=== PATIENT | male | born 1940 | race Caucasian/White ===

== ENCOUNTER → 2019-11-16 | Outpatient (CLI) | payer OTHER | LOC: M.RAD 09:20 | DX: N64.4 Mastodynia (principal) ==

== ENCOUNTER 2020-02-03 15:11 | Inpatient (IN) | payer OTHER ==
[~2020-02-03] VITALS: Ht 180.3 cm; Wt 74.5 kg
[2020-02-03] VITALS (13 sets, daily range): BP systolic 84–143; BP diastolic 49–111
[2020-02-03 15:37] LABS: HEMATOCRIT 32.2 % (42.0-52.0); HEMOGLOBIN 11.3 gm/dL (14.0-18.0); MCH 31.6 pg (26.0-34.0); MCHC 35.1 g/dL (28.0-37.0); MPV 8.1 fl. (7.2-11.1); NUCLEATED RBCS 0 /100WBC; PLATELET COUNT* 160 thou/uL (150-400); RBC 3.57 mil/uL (4.50-6.00); RDW-CV 15.4 % (10.5-14.5); WBC 8.8 thou/uL (4.0-11.0)
[2020-02-03 15:47] LABS: CREATININE 1.5 mg/dL (0.6-1.3); POTASSIUM 3.6 mmol/L (3.5-5.1)
[2020-02-03 15:48] LABS: APTT 26.3 Seconds (25.0-31.3); INR 1.2; PROTIME 11.9 Seconds (9.20-11.50)
--- NOTE | 2020-02-03 15:50 | NUR ---
1535 PT SEIZED, ER STAFF AND PHYSICIAN AT BEDSIDE, 2MG ATIVAN GIVEN PER PHYSICIAN ORDER
[2020-02-03 16:00] LABS: ALBUMIN 3.3 g/dL (3.4-5.0); CK-MB MASS 2.3 ng/mL (<0.5-3.6); TOTAL BILIRUBIN 0.7 mg/dL (<0.1-1.0); TOTAL PROTEIN 7.5 g/dL (6.4-8.2)
[2020-02-03 16:18] LABS: ABSOLUTE LYMPHOCYTES 1.1 thou/uL (0.8-5.3); ABSOLUTE MONOCYTES 0.6 thou/uL (0.0-1.2); ANISOCYTOSIS 1+; METAMYELOCYTES 1 %; MYELOCYTES 1 %; PLATELET ESTIMATE ADEQUATE; POLYCHROMASIA Occasional
[2020-02-03] MEDS ORDERED: OMEPRAZOLE 20 M20 M1 PO (16:24)
[2020-02-03] MEDS ORDERED: CIPRO500 M1 PO (16:27)
[2020-02-03] MEDS ORDERED: DEXAMETHASONE 44 M1 PO (16:27)
[2020-02-03] MEDS ORDERED: ONDANSETRON ODT8 MG PO (16:28)
[2020-02-03] MEDS ORDERED: CVS SUPER CRAN1 EACH PO (16:30)
[2020-02-03] MEDS ORDERED: ZESTRIL10 MG PO (16:30)
--- NOTE | 2020-02-03 18:47 | NUR ---
RECEIVED PT FROM ED. PT TRANSPORTED FROM CT BY ED RN. PT ALERT TO SELF AND PLACE. PT HAS GARBLED SPEECH. PT DENIES PAIN. VSS. AFEBRILE. SINUS RHYTHM WITH BBB ON PUBLIC ADDRESS SYSTEM MECHANIC. ADVANCE DIRECTIVE PLACED IN CHART. PT VOIDED PER URINAL. 3% NS INFUSED.
--- NOTE | 2020-02-03 19:34 | NUR ---
UPDATE GIVEN TO WON SIERRA.
[2020-02-03 22:06] LABS: CALCIUM 8.9 mg/dL (8.5-10.1); CREATININE 1.5 mg/dL (0.6-1.3); POTASSIUM 3.8 mmol/L (3.5-5.1)
[2020-02-04] VITALS (21 sets, daily range): BP systolic 57–148; BP diastolic 37–104
[2020-02-04 03:30] LABS: CALCIUM 8.6 mg/dL (8.5-10.1); CREATININE 1.3 mg/dL (0.6-1.3); POTASSIUM 3.6 mmol/L (3.5-5.1)
--- NOTE | 2020-02-04 06:59 | NUR ---
ASSESSMENTS CHARTED. PATIENT SODIUM LEVEL RETURNING TO NORMAL LIMITS. PATIENT BECAME MORE ALERT AND ORIENTED THE SHIFT PROGRESSED. ATTEMPTED TO START SECOND IV FOR ICU STATUS BUT COULD NOT GET ONE STARTED. NS INFUSING AT 40 ML/HR. PATIENT REMIANED FREE OF SEIZURES ALL NIGHT.
[2020-02-04 08:59] LABS: CALCIUM 8.5 mg/dL (8.5-10.1); CREATININE 1.3 mg/dL (0.6-1.3); POTASSIUM 3.5 mmol/L (3.5-5.1)
--- NOTE | 2020-02-04 09:39 | NUR ---
PATIENT TO ROOM 226 VIA WHEELCHAIR AT THIS TIME. REPORT GIVEN TO TELE NURSE. IV FLUIDS DISCONTINUED PER MD. CONSULT FOR NEPHROLOGY CALLED. ASSESSMENT CHARTED. VSS.
[2020-02-04 12:19] LABS: CALCIUM 8.4 mg/dL (8.5-10.1); CREATININE 1.2 mg/dL (0.6-1.3); POTASSIUM 3.7 mmol/L (3.5-5.1)
[2020-02-04 16:21] LABS: CALCIUM 8.4 mg/dL (8.5-10.1); CREATININE 1.2 mg/dL (0.6-1.3); POTASSIUM 3.4 mmol/L (3.5-5.1)
--- NOTE | 2020-02-04 17:55 | NUR ---
PT VERY CONFUSED AND FORGETFUL. REQUIRES FREQUENT REDIRECTION. URINATING ON THE FLOOR INSTEAD OF HIS URINAL. DENIES PAIN. MRI AND EEG ORDERED. WILL BE DONE TOMARROW. SLOW TO PROGRESS TOWARDS GOALS.
[2020-02-05] VITALS: BP 113/53
[2020-02-05 04:00] VITALS: BP 126/59
--- NOTE | 2020-02-05 04:33 | NUR ---
ASSUMED CARE OF PT AFTER REPORT AT 1930. PT A&OX1. CONFUSED & IMPULSIVE. TRIED TO PULL OUT IV & MANAGER SPECIALTY-DR ADEN MADE AWARE WITH NEW ORDER. VSS. PHYSICAL ASSESSMENT COMPLETED AND CHARTED. PT ON RA. PT TRACING SR/BBB ON TELE. PT UPSTANDBY. PT DENIES PAIN. PT WITH EPISODES OF INCONTINENT BLADDER. URINE SPECIMEN SENT TO LAB. FALL PRECAUTIONS IN PLACED. MAINTAINED ON SEIZURE PRECAUTION.
[2020-02-05 04:44] LABS: URINE BILIRUBIN NEGATIVE (Negative); URINE BLOOD TRACE (Negative); URINE CLARITY CLEAR; URINE COLOR YELLOW; URINE GLUCOSE-RANDOM NEGATIVE (Negative); URINE KETONES NEGATIVE (Negative); URINE LEUKOCYTES-REFLEX TRACE (Negative); URINE NITRITE-REFLEX NEGATIVE (Negative); URINE PROTEIN NEGATIVE (Negative); URINE UROBILINOGEN 0.2 E.U./dl (0.2-1.0)
[2020-02-05 05:43] LABS: CASTS None Seen /LPF (None Seen); SQUAMOUS 0-3 Few /LPF (0-3)
[2020-02-05 05:44] LABS: BACTERIA-REFLEX 1-9 Few /HPF (None Seen); CRYSTALS None Seen /LPF (None Seen); URINE RBC 3-10 Few /HPF (0-2); URINE WBC-REFLEX 6-15 Few /HPF (0-5)
[2020-02-05 08:30] VITALS: BP 141/72
--- NOTE | 2020-02-05 11:23 | NUR ---
SW spoke with pt dtr to complete initial assessment, introduce self, and SW role. Pt with AMS, pt dtr said that pt was previously independent cognitively and in mobility. Pt dtr said that pt lives at home with but has beginning stages of dementia. Pt dtr hopeful to have pt move in with her and her in March. SW to continue to follow to assist with safe dc planning.
--- NOTE | 2020-02-05 15:32 | EKG ---
[place] [address] ELECTROCARDIOGRAM REPORT Name: TATE[facility]DA [employer] Room: [address] IN M.R.#: [id number] Admission: 02/03/20 Attend Phys: Robin Claros Discharge: Date of : 44 Date of Service: 02/03/20 1519 Report #: [id number] THIS REPORT FOR: //name// [facility] ED Test Date: 2020-02-03 Test Time: 15:19:06 Pat Name: AMANDA YBARRA Department: Room: [facility] Gender: M Train Reservation Clerk: : 1940 Requested By: Nolan Madera Order Number: [id number] MD: Deric Gavin Measurements Intervals [place] Rate: 97 P: 49 OR: 162 QRS: -82 QRSD: 137 T: 76 QT: 398 QTc: 506 Interpretive Statements Sinus tachycardia Multiple premature complexes, vent & supraven RBBB and LAFB Compared to ECG 03/07/2013 07:37:50 Myocardial infarct finding no longer present Electronically Signed On 02-05-2020 15:32:30 CDT by Deric Gavin [email or web address] <ELECTRONICALLY SIGNED> By: Deric Gavin MD, [facility] 02/05/20 1532 1519 1519 Deric Gavin MD, [facility] /EPI
[2020-02-05 16:00] VITALS: BP 128/64
--- NOTE | 2020-02-05 17:31 | NUR ---
ALERT TO SELF. IMPULSIVE AT TIMES. THOUGHT DATE WAS 05/2020. WITH A LITTLE CUEING DID SAY HE WAS IN [facility]. DENIES PAIN. REMAINS ON SEIZURE PRECAUTIONS. UP WITH STAND BY ASSIST. REMAINS ON HEART MONITOR WITH RHYTHM BUNDLE BRANCH BLOCK. CONTINUES ON 1200ML FLUID RESTRICTIONS. VOIDED IN URINAL WITHOUT DIFFICULTY. USES CALL LIGHT WHEN NEEDING ASSIST. FALL PRECAUTIONS IN PLACE. BED ALARM ON.
[2020-02-05 23:55] VITALS: BP 128/69
[2020-02-06 05:10] LABS: ABSOLUTE LYMPHOCYTES 0.7 thou/uL (0.8-5.3); ABSOLUTE MONOCYTES 0.8 thou/uL (0.0-1.2); ABSOLUTE NEUTROPHILS 7.5 thou/uL (1.6-8.1); BASOPHILS 0.4 %; EOSINOPHILS 0.1 %; HEMATOCRIT 28.2 % (42.0-52.0); LYMPHOCYTES 8.2 %; MCH 31.9 pg (26.0-34.0); MCHC 35.3 g/dL (28.0-37.0); MCV 90.5 fL (80.0-100.0); MONOCYTES 8.7 %; MPV 7.8 fl. (7.2-11.1); NUCLEATED RBCS 0 /100WBC; PLATELET COUNT* 190 thou/uL (150-400); POLYS 82.6 %; RBC 3.12 mil/uL (4.50-6.00); RDW-CV 15.9 % (10.5-14.5); WBC 9.1 thou/uL (4.0-11.0)
[2020-02-06 05:12] VITALS: BP 137/70
[2020-02-06 05:27] LABS: ALBUMIN 2.5 g/dL (3.4-5.0); CALCIUM 8.4 mg/dL (8.5-10.1); CREATININE 1.3 mg/dL (0.6-1.3); POTASSIUM 3.6 mmol/L (3.5-5.1); TOTAL BILIRUBIN 0.4 mg/dL (<0.1-1.0); TOTAL PROTEIN 6.3 g/dL (6.4-8.2)
--- NOTE | 2020-02-06 07:11 | NUR ---
Pt oriented to person. Confused. Forgetful. Pt can be impulsive. Can attempt getting out of bed without asking for help. Seizure precautions in place. Fall precautions in place. Pt takes med whole. Pt voids via urinals. Call light within reach. Will continue to monitor.
[2020-02-06 12:36] VITALS: BP 124/58
--- NOTE | 2020-02-06 14:34 | CON ---
[facility] [address] [place] [address] CONSULTATION Name: AMANDA YBARRA Room: [address] IN .R.#: [id number] Admission: 02/03/20 Attend Phys: Leandar Swain Discharge: Date of : 44 Report #: [id number] THIS REPORT FOR: //name// cc: WEI Romero family physician/PCP WEI Romero family physician/PCP ~ THIS REPORT FOR: //name// CC: WEI physician/PCP Robin Claros DATE OF SERVICE: 02/04/2020 REQUESTING PHYSICIAN: Robin Claros DO REASON FOR CONSULTATION: Hyponatremia. HISTORY OF PRESENT ILLNESS: The patient is a 79-year-old gentleman, with medical history significant for metastatic lung cancer, who presents with altered mental status. He then later on developed seizure, was found to be hyponatremic. His serum sodium was 124. He was started in the Emergency Room on 2% saline and normal saline. Serum sodium today is 136, so 2% saline and normal saline was stopped. I was not involved in that decision about that fluids in the Emergency Room. This is my first time I am seeing the patient now. PAST MEDICAL HISTORY: Lung cancer, which is metastatic, history of seizure. He also has history of GERD and hypertension. MEDICATIONS: Prior to admission reviewed. FAMILY HISTORY: Noncontributory. SOCIAL HISTORY: No current tobacco or alcohol abuse. REVIEW OF SYSTEMS: Feels better now. He was asleep, I woke him up and he has no chest pain, no shortness of breath, no nausea, no vomiting, no dysuria. So again pretty comfortable with no complaints. PHYSICAL EXAMINATION: GENERAL: No acute distress. VITAL SIGNS: Blood pressure now 139/70, heart rate is 67, afebrile. HEENT: Pupils round. NECK: Supple. LUNGS: Clear. CARDIOVASCULAR: Regular rate. ABDOMEN: [place] [address] CONSULTATION Name: AMANDA YBARRA Room: [address]#: [id number] Admission: 02/03/20 Attend Phys: Leandra Swain Discharge: Date of : 44 Report #: [id number] LOWER EXTREMITIES: No edema. ASSESSMENT: 1. Hyponatremia. It is difficult to say now what caused that because the patient received both normal saline and 2% saline. 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 I am going to check urine for sodium and for osmolality and follow his serum sodium level. I would put him on 1200 mL fluid restriction, now empirically. <ELECTRONICALLY SIGNED> By: Kai Swain MD 02/06/20 1434 1050 1527Alexandtyree Swain MD /SHYANNE
--- NOTE | 2020-02-06 16:10 | NUR ---
PATIENT RESTING I NBED. UP WITH ASSISTX1 TO BATHROOM. AOX2 AND CONFUSED. NEUROLOGY VISITED TODAY. AWAITING EEG RESULTS. PATINET FREQUENTLY REORIENTED AND IMPUKSIVE AT TIMES. HOURLY ROUNDING COMPLETED FOR PATIENT SAFETY.
[2020-02-06 17:50] VITALS: BP 142/65
[2020-02-06 20:00] VITALS: BP 145/68
[2020-02-07] VITALS (7 sets, daily range): BP systolic 115–122; BP diastolic 45–69
--- NOTE | 2020-02-07 05:51 | NUR ---
ASSESSMENTS COMPLETED AT BEDSIDE, PLEASE REFER TO CHARTING FOR DETAILS. MEDICATIONS ADMINISTERED PER MAR. HOURLY ROUNDING COMPLETED FOR SAFETY. FALL PERCAUTIONS IN PLACE, BED ALARM ON AND CALL LIGHT WITHIN REACH. PT DID WELL WITH USING HIS CALL LIGHT TO GET UP, SHOWING IMPROVMENT WITH GAIT WELL.
[2020-02-07] MEDS ORDERED: KEPPRA 500 MG500 M1 PO (08:55)
[2020-02-07 09:33] LABS: ABSOLUTE LYMPHOCYTES 0.9 thou/uL (0.8-5.3); ABSOLUTE MONOCYTES 0.8 thou/uL (0.0-1.2); ABSOLUTE NEUTROPHILS 7.4 thou/uL (1.6-8.1); BASOPHILS 0.4 %; EOSINOPHILS 0.1 %; HEMATOCRIT 28.4 % (42.0-52.0); LYMPHOCYTES 9.3 %; MCHC 35.2 g/dL (28.0-37.0); MCV 90.9 fL (80.0-100.0); MONOCYTES 9.2 %; MPV 8.2 fl. (7.2-11.1); NUCLEATED RBCS 0 /100WBC; PLATELET COUNT* 211 thou/uL (150-400); RBC 3.12 mil/uL (4.50-6.00); RDW-CV 16.2 % (10.5-14.5); WBC 9.1 thou/uL (4.0-11.0)
[2020-02-07 09:41] LABS: ALBUMIN 2.6 g/dL (3.4-5.0); CALCIUM 8.5 mg/dL (8.5-10.1); CREATININE 1.1 mg/dL (0.6-1.3); POTASSIUM 3.6 mmol/L (3.5-5.1); TOTAL BILIRUBIN 0.3 mg/dL (<0.1-1.0); TOTAL PROTEIN 6.4 g/dL (6.4-8.2)
--- NOTE | 2020-02-07 15:57 | NUR ---
Pt discharged to home today, [facility] Pt's PCP is Dr Ernesto Spivey [phone]. Dtr here and in agreement
--- NOTE | 2020-02-08 17:53 | EEG ---
[address] [address] EEG STUDY REPORT Name: AMANDA YBARRA Room: [address]R#: [id number] Admission: 02/03/20 Attend Phys: Leandra Swain Discharge: 02/07/20 Date of : 44 Report #: [id number] THIS REPORT FOR: //name// CC: WEI physician/PCP Robin Claros DATE OF SERVICE: 02/05/2020 This patient is being evaluated for altered mental status and seizure. EEG was done by placing the electrodes by standard 10-20 system of electrode placement. Both referential and sequential montages were used for recording. The patient's EEG has a lot of artifact and is difficult to interpret. Background activity does go up to about 8-9 Hz and 30 microvolt. Photic stimulation is unremarkable. The patient appeared to be drowsy during part of this EEG and that is associated with bilateral slowing and vertex sharp waves. Throughout the record, no active epileptiform activity was noticed. IMPRESSION: This EEG is difficult to interpret because it is intermixed with a lot of artifact. It is moderately abnormal demonstrated some slowing, but does not appear to be showing any active epileptiform activity. Thank you very much for this referral. <ELECTRONICALLY SIGNED> By: Jeremy Burciaga MD 02/08/20 1753 1625 1719MD ailyn Headley
== END 2020-02-07 13:49 | disposition home health service (06) | DRG 643 ==
LOC: M.ERS 15:11 → M.ICU 16:27 → M.2W 16:27 → M.TBA-ER 16:27 → M.ICU 17:55 → M.2W 02-04 10:05
PROVIDERS: Emergency Medicine Emergency Medical Services; Internal Medicine Nephrology; ADMIT Internal Medicine; ATTEND Internal Medicine
DX: E22.2 Syndrome of inappropriate secretion of antidiuretic hormone (principal); R65.11 Systemic inflammatory response syndrome (SIRS) of non-infectious origin with acute organ dysfunction; G93.41 Metabolic encephalopathy; N39.0 Urinary tract infection, site not specified; N17.9 Acute kidney failure, unspecified; C34.90 Malignant neoplasm of unspecified part of unspecified bronchus or lung; R56.9 Unspecified convulsions; K21.9 Gastro-esophageal reflux disease without esophagitis; F17.210 Nicotine dependence, cigarettes, uncomplicated; I12.9 Hypertensive chronic kidney disease with stage 1 through stage 4 chronic kidney disease, or unspecified chronic kidney disease; J44.9 Chronic obstructive pulmonary disease, unspecified; N18.3 Chronic kidney disease, stage 3 (moderate); Z85.118 Personal history of other malignant neoplasm of bronchus and lung; Z20.828 Contact with and (suspected) exposure to other viral communicable diseases; Z79.899 Other long term (current) drug therapy

== ENCOUNTER 2020-02-26 11:59 | Inpatient (IN) | payer OTHER ==
[~2020-02-26] VITALS: Ht 172.7 cm; Wt 66.2 kg
--- NOTE | ~2020-02-26 | CON ---
[facility] [address] [place] [address] CONSULTATION Name: AMANDA YBARRA Room: [address] IN M.R.#: [id number] Admission: 02/26/20 Attend Phys: Mary Carrasco MD Discharge: Date of : 44 Report #: [id number] THIS REPORT FOR: //name// cc: [facility] physician unknown [facility] physician unknown ~ THIS REPORT FOR: //name// CC: WEI unknown Mary Carrasco [facility] DATE OF SERVICE: 02/27/2020 HISTORY OF PRESENT ILLNESS: This is a 79-year-old male patient who was seen by me for confusion. The daughter provides history. I reviewed his prior records. I have seen him last time, he had a problem with an episode of confusion. Workup was mostly unremarkable including MRI of the brain with and without contrast. It was thought that he may have had a seizure and he was started on Keppra. He had similar episode where he had confusion and some hallucination. He has some UTI. He does have some low oxygen when he came in. He has no side effect from Keppra. He feels back to his baseline. A 14-point review of systems was carried out and his prior records were reviewed. He had some spells. He has a history of lung carcinoma. He has been on Cipro the last time, but presently he is not on Cipro. I got an MRI and MRA done. He had one last time. It does not show any abnormality which can explain his symptoms. His EEG is still pending. REVIEW OF SYSTEMS: Positive for metastatic lung cancer. He had multiple seizures. FAMILY HISTORY: Negative for seizure. SOCIAL HISTORY: He has a history of smoking, but he does not drink alcohol. PHYSICAL EXAMINATION: NEUROLOGIC: His examination indicates he is alert, responsive, and able to follow simple commands. He was in fact able to recognize me. He thinks he is back to baseline. His speech is back to the baseline. His cranial nerve examination 2-12 does not appear to be showing any definite abnormality. Neuromuscular examination is unremarkable. He is able to ambulate without any assistance. VITAL SIGNS: His blood pressure is 153/63, pulse is 53, and temperature is 98.2. IMPRESSION AND PLAN: Pretty difficult to form in this patient. The main differential is between encephalopathy as well as [place] [address] CONSULTATION Name: AMANDA YBARRA Room: [address]#: [id number] Admission: 02/26/20 Attend Phys: Mary Carrasco MD Discharge: Date of : 44 Report #: [id number] await the EEG. His systemic problems need to be addressed, and I will discuss with the family and yourself tomorrow. About 50 minutes of time was spent taking care of this patient today and majority of that time was spent counseling and coordinating. By: 1959 Isabel Burciaga MD /nt
[~2020-02-26 11:59] MED LIST: CIPRO500 M1 PO; CVS SUPER CRAN1 EACH PO; DEXAMETHASONE 44 M1 PO; KEPPRA 500 MG500 M1 PO; OMEPRAZOLE 20 M20 M1 PO; ONDANSETRON ODT8 MG PO; ZESTRIL10 MG PO
[2020-02-26 12:04] VITALS: BP 124/54
[2020-02-26 12:31] LABS: HEMATOCRIT 28.1 % (42.0-52.0); HEMOGLOBIN 9.8 gm/dL (14.0-18.0); MCH 32.7 pg (26.0-34.0); MCHC 34.8 g/dL (28.0-37.0); MCV 93.9 fL (80.0-100.0); NUCLEATED RBCS 0 /100WBC; PLATELET COUNT* 86 thou/uL (150-400); RBC 2.99 mil/uL (4.50-6.00); RDW-CV 17.8 % (10.5-14.5)
[2020-02-26 12:32] LABS: WBC 1.7 thou/uL (4.0-11.0)
[2020-02-26 12:42] LABS: ANION GAP 8 mmol/L (7-16); BUN 17 mg/dL (7-18); CALCIUM 9.1 mg/dL (8.5-10.1); CHLORIDE 98 mmol/L (98-107); CO2 26 mmol/L (21-32); CREATININE 1.3 mg/dL (0.6-1.3); GLUCOSE 136 mg/dL (70-99); POTASSIUM 3.7 mmol/L (3.5-5.1); SODIUM 132 mmol/L (136-145)
[2020-02-26 12:53] LABS: ALBUMIN 3.1 g/dL (3.4-5.0); ALKALINE PHOSPHATASE 412 U/L (46-116); AMMONIA < 10 umol/L (11-32); NT-PRO BRAIN NAT PEPTIDE 512 pg/mL (<300); SGOT 70 U/L (15-37); SGPT 67 U/L (30-65); TOTAL BILIRUBIN 0.5 mg/dL (<0.1-1.0); TOTAL PROTEIN 7.2 g/dL (6.4-8.2)
[2020-02-26 13:02] LABS: BE -2.5 mmol/L (-2 to +3); PCO2 33.3 mmHg (35.0-45.0); PO2 67.9 mmHg (75.0-100.0); pH 7.425 (7.340-7.450)
[2020-02-26 13:08] LABS: ABSOLUTE EOSINOPHILS 0.1 thou/uL (0.0-0.7); ABSOLUTE LYMPHOCYTES 0.3 thou/uL (0.8-5.3); ABSOLUTE MONOCYTES 0.2 thou/uL (0.0-1.2); ABSOLUTE NEUTROPHILS 1.1 thou/uL (1.6-8.1); ANISOCYTOSIS 1+; ATYPICAL LYMPHS 2 %; PLATELET ESTIMATE ADEQUATE; POIKILOCYTOSIS 1+; POLYCHROMASIA 1+
[2020-02-26 13:14] LABS: URINE BILIRUBIN NEGATIVE (Negative); URINE BLOOD NEGATIVE (Negative); URINE CLARITY CLEAR; URINE COLOR YELLOW; URINE GLUCOSE-RANDOM NEGATIVE (Negative); URINE KETONES NEGATIVE (Negative); URINE NITRITE-REFLEX NEGATIVE (Negative); URINE PROTEIN TRACE (Negative); URINE UROBILINOGEN 0.2 E.U./dl (0.2-1.0)
[2020-02-26 13:29] LABS: URINE LEUKOCYTES-REFLEX 2+ (Negative)
[2020-02-26 13:30] LABS: CASTS None Seen /LPF (None Seen); CRYSTALS None Seen /LPF (None Seen); SQUAMOUS 0-3 Few /LPF (0-3); URINE RBC 0-2 Rare /HPF (0-2); URINE WBC-REFLEX 6-15 Few /HPF (0-5)
--- NOTE | 2020-02-26 17:05 | NUR ---
THIS RN STARTED A NEW IV IN PATIENTS ROOM. THIS RN TOLD PT THAT I HAD TO START A NEW IV, AND HE COULD NOT PULL THIS ONE OUT, AND PT AGREED. AFTER SUCCESSFUL INSERTION OF IV, THIS RN REMINDED PT THAT HE COULD NOT PULL THIS IV OUT. PT STATED " I WONT PULL THIS IV OUT, IF I COULD TOUCH YOUR PUSSY." THIS RN INSTRUCTED PT THAT WAS INAPPROPRIATE, AND NOT TO TALK IN THAT WAY. DR. FELIPE NOTIFIED.
--- NOTE | 2020-02-26 18:07 | NUR ---
PT ASKED TO GO TO THE BATHROOM AND WAS GIVEN PRIVACY. DURIN THAT TIME HE REMOVED ALL OF HIS MONITORING EQUIPMENT AND RIPPED OUT HIS IV. HE WAS BLEEDING ON THE FLOOR AND ANGRY THAT WE WERE ATTEMPTING TO PLACE BANDAGES ON HIM.
[2020-02-26 18:09] VITALS: BP 106/73
[2020-02-27 05:00] VITALS: BP 123/60
--- NOTE | 2020-02-27 05:01 | NUR ---
PATIENT HAS REMAINED ORIENTED X 4, FORGETFUL BUT COOPERATIVE WITH CARES AND NO OUTBURSTS THIS SHIFT. UP TO BR WITH CGA. VITAL SIGNS STABLE. CONSULTS PENDING. SITTER HAS BEEN WITH PATIENT TONIGHT. SON CALLED FOR UPDATE AT HS. THIS WAS PROVIDED. CONTINUE TO MONITOR.
[2020-02-27 07:10] LABS: HEMATOCRIT 24.7 % (42.0-52.0); HEMOGLOBIN 8.5 gm/dL (14.0-18.0); MCH 32.4 pg (26.0-34.0); MCHC 34.5 g/dL (28.0-37.0); MCV 93.8 fL (80.0-100.0); MPV 8.4 fl. (7.2-11.1); RBC 2.64 mil/uL (4.50-6.00)
[2020-02-27 07:17] LABS: WBC 1.2 thou/uL (4.0-11.0)
[2020-02-27 07:23] LABS: ALBUMIN 2.8 g/dL (3.4-5.0); CALCIUM 8.1 mg/dL (8.5-10.1); CREATININE 0.9 mg/dL (0.6-1.3); MAGNESIUM 1.7 mg/dL (1.8-2.4); POTASSIUM 3.8 mmol/L (3.5-5.1); TOTAL BILIRUBIN 0.4 mg/dL (<0.1-1.0); TOTAL PROTEIN 6.3 g/dL (6.4-8.2)
[2020-02-27 07:45] VITALS: BP 131/56
--- NOTE | 2020-02-27 09:31 | EKG ---
[place] [address] ELECTROCARDIOGRAM REPORT Name: AMANDA YBARRA Room: [address] IN .R.#: [id number] Admission: 02/26/20 Attend Phys: Mary Carrasco, Discharge: Date of : 44 Date of Service: 02/26/20 1205 Report #: [id number] THIS REPORT FOR: //name// [facility] ED Test Date: 2020-02-26 Test Time: 12:05:37 Pat Name: AMANDA YBARRA Department: Room: [facility] Gender: M Endoscopy Nurse: EMILEE : 1940 Requested By: Joana Hassan Order Number: [id number] Javier MD: John Villeda Measurements Intervals [place] Rate: 75 P: 64 [place]: 190 QRS: -82 QRSD: 147 T: 57 QT: 414 QTc: 463 Interpretive Statements Sinus rhythm RBBB and LAFB Compared to ECG 02/03/2020 15:19:06 Sinus tachycardia no longer present Electronically Signed On 02-27-2020 9:31:09 CDT by John Villeda [email or web address] <ELECTRONICALLY SIGNED> By: John Villeda MD, FACC 02/27/20 0931 1205 1205 John Villeda MD, [facility] /EPI
--- NOTE | 2020-02-27 13:46 | NUR ---
Nutrition: Pt admitted with confusion. Lung cancer with METS, chemo. Seen for nursing risk 2 points. Wt recorded as 146# today. Wts are variable in [employer]. Spoke with RN, she stated pt is eating well and is thin but not emaciated. Unsure of accurate wt today. Regular diet. Albumin 2.8. RN agreed pt may take an Ensure - RD to order. Will follow up on po intake, wt, labs. Consider Mild risk at this time. f/u 03/03/20.
[2020-02-27 15:33] VITALS: BP 153/63
--- NOTE | 2020-02-27 16:15 | NUR ---
PT REMAINED ALERT AND ORIENTED. PT RESTING IN BED. PT DENIES ANY PAIN OR N/V. FALL RISK PRECAUTIONS IN PLACE. HOURLY ROUNDING COMPLETED. WILL CONTINUE TO MONITOR.
--- NOTE | 2020-02-27 16:52 | NUR ---
CM COMPLETED INITIAL ASSESSMENT TO DISCUSS D/C PLAN. PT TO POTENTIAL TRANSFER TO [facility]. PT AND DTR NOTIFIED. CM CONTACT ROM AT CT AND FAXED REQUESTED INFO TO [phone]. ROM REQUESTED PT SIGN TRANSFER FORM INDICATING HE IS AGREEABLE TO TRANSFER, DOESNT NEED DOCTOR SIGNATURE (FOR NOW) PER ROM. PT HAS 0 DME, AND NO HX W/SNF OR HH. PT INDEPENDENT W/ADLS AND DESCRIBES SELF "SEMI-ACTIVE." PT STATED HIS DTR RUNS ERRANDS AND HE HAS NOT DRIVEN SINCE SEIZURE ON 02/02.
[2020-02-27 20:00] VITALS: BP 135/55
[2020-02-28 07:05] VITALS: BP 127/60
[2020-02-28 07:39] LABS: HEMATOCRIT 24.6 % (42.0-52.0); HEMOGLOBIN 8.7 gm/dL (14.0-18.0); MCH 32.8 pg (26.0-34.0); MCHC 35.2 g/dL (28.0-37.0); MCV 93.3 fL (80.0-100.0); MPV 8.8 fl. (7.2-11.1); RBC 2.64 mil/uL (4.50-6.00); RDW-CV 18.3 % (10.5-14.5)
[2020-02-28 07:44] LABS: CALCIUM 8.5 mg/dL (8.5-10.1); CREATININE 0.9 mg/dL (0.6-1.3); MAGNESIUM 1.7 mg/dL (1.8-2.4); POTASSIUM 3.6 mmol/L (3.5-5.1)
[2020-02-28 07:46] LABS: WBC 1.1 thou/uL (4.0-11.0)
[2020-02-28] MEDS ORDERED: ROCEPHIN 11 GM/1001 IV (11:25)
[2020-02-28] MEDS ORDERED: FLOMAX0.4 MG PO (11:25)
[2020-02-28 11:32] VITALS: BP 127/60
--- NOTE | 2020-02-28 14:38 | NUR ---
PT TRANSFERRED TO [facility]. REPORT GIVEN TO NURSE. HOURLY ROUNDING COMPLETED. PT LEFT WITH IV.
--- NOTE | 2020-02-28 15:06 | NUR ---
josephine [place], informed cm pt approved for transfer. dr. crook and pt nurse notified and agreeable to plan. pt's dtr, justyna, notified of transfer approval and transport time (1400). cm set up transportation via [facility]. the number to call report is [phone] x [phone]. Accepting physician is Dr. Hagan. pt room number is 244 bed 2.
== END 2020-02-28 14:39 | disposition short-term general hospital (02) | DRG 70 ==
LOC: M.ERS 11:59 → M.ORTHSURG 15:27 → M.TBA-ER 15:27 → M.ORTHSURG 18:19
PROVIDERS: Personal Emergency Response Attendant; ADMIT Internal Medicine; ATTEND Internal Medicine
DX: G93.41 Metabolic encephalopathy (principal); J96.01 Acute respiratory failure with hypoxia; D61.810 Antineoplastic chemotherapy induced pancytopenia; E87.1 Hypo-osmolality and hyponatremia; N39.0 Urinary tract infection, site not specified; C34.90 Malignant neoplasm of unspecified part of unspecified bronchus or lung; C79.9 Secondary malignant neoplasm of unspecified site; D61.818 Other pancytopenia; Z20.828 Contact with and (suspected) exposure to other viral communicable diseases; J44.9 Chronic obstructive pulmonary disease, unspecified; F17.210 Nicotine dependence, cigarettes, uncomplicated; B96.89 Other specified bacterial agents as the cause of diseases classified elsewhere; Z85.118 Personal history of other malignant neoplasm of bronchus and lung